=== PATIENT | female | born 1960 | race Caucasian/White ===

== ENCOUNTER 2018-07-13 10:15 | Emergency (ER) | payer OTHER ==
[2018-07-13 12:00] VITALS: BP 113/75
--- NOTE | 2018-07-13 12:04 | UC ---
Skin Complaint HPI - HPI Summary HPI Summary: 57 yo female presents with rash. She tells me that she recently started neosporin for an intestinal issue. About 5 days ago developed a rash on her back and abdomen. She stopped taking the neosporin, but the rash has continued. She has been taking benadryl po with no change in rash. Rash is itchy. No swelling or difficulty breathing. No fever or chills. - History of Current Complaint Chief Complaint: UCSkin Time Seen by Provider: 07/13/18 12:04 Stated Complaint: HIVES Hx Obtained From: Patient Onset/Duration: Sudden Onset Current Severity: None Pain Intensity: 0 - Allergy/Home Medications Allergies/Adverse Reactions: Allergies Allergy/AdvReac Type Severity Reaction Status Date / Time amoxicillin Allergy Rash Verified 01/06/18 15:44 neomycin Allergy Hives Verified 07/13/18 12:01 PMH/Surg Hx/FS Hx/Imm Hx Endocrine History: Hypothyroidism - Surgical History Surgical History: Yes Surgery Procedure, Year, and Place: T & A - Family History Known Family History: Positive: Other - Thyroid problems - Social History Occupation: Employed Full-time Lives: With Family Alcohol Use: Occasionally Substance Use Type: None Smoking Status (MU): Never Smoked Tobacco Review of Systems All Other Systems Reviewed And Are Negative: Yes Constitutional: Positive: Negative Skin: Positive: Rash Eyes: Positive: Negative ENT: Positive: Negative Respiratory: Positive: Negative Cardiovascular: Positive: Negative Gastrointestinal: Positive: Negative Neurovascular: Positive: Negative Neurological: Positive: Negative Psychological: Positive: Negative Physical Exam - Summary Physical Exam Summary: GENERAL: NAD. WDWN. No pain distress. SKIN: Abdomen, back, and chest with diffuse blanchable urticaria and excoriations. NECK: Supple. Nontender. No lymphadenopathy. HEENT: Head: AT/NC Throat: Posterior oropharynx without exudates, erythema, or tonsillar enlargement. Uvula midline. Airway patent. CHEST: CTAB. No accessory muscle use. Breathing comfortably and in no distress. CV: Pulses intact. Cap refill <2seconds NEURO: Alert. PSYCH: Age appropriate behavior. Triage Information Reviewed: Yes Vital Signs: Initial Vital Signs Temp 98.3 F 07/13/18 11:56 Pulse 75 07/13/18 11:56 Resp 12 07/13/18 11:56 BP 113/75 07/13/18 11:56 Pulse Ox 100 07/13/18 11:56 Vital Signs Reviewed: Yes Course/Dx - Course Course Of Treatment: Pt was given kenalog 40mg IM in the clinic and will rx for prednisone. Suspect allergic reaction to the neomycin and advised not to resume this and f/u with her PCP for alternative treatments. - Diagnoses Provider Diagnosis: Allergic reaction caused by a drug Discharge - Sign-Out/Discharge Documenting (check all that apply): Patient Departure All imaging exams completed and their final reports reviewed: No Studies - Discharge Plan Condition: Stable Disposition: HOME Prescriptions: predniSONE TAB* [Deltasone 20 MG TAB*] 20 mg PO DAILY #9 tab Patient Education Materials: Urticaria (ED), General Allergic Reaction (ED) Referrals: Myrna Reynolds MD [Primary Care Provider] - Additional Instructions: If you develop a fever, shortness of breath, chest pain, new or worsening symptoms - please call your PCP or go to the ED. 1) Continue taking the benadryl and using the itch cream 2) Start taking the PREDNISONE tomorrow as you were given a dose of steroid in the clinic today - Billing Disposition and Condition Condition: STABLE Disposition: Home
[2018-07-13] MEDS ORDERED: Triamcinolone Acetonide* 40 MG/ML 1 ML VIAL IM ONE (12:14)
== END 2018-07-13 12:33 | disposition home or self-care (01) ==
LOC: UCEAST 10:15
DX: L27.1 Localized skin eruption due to drugs and medicaments taken internally (principal); T36.5X5A Adverse effect of aminoglycosides, initial encounter; Y92.9 Unspecified place or not applicable; Z88.0 Allergy status to penicillin; E03.9 Hypothyroidism, unspecified
CPT/HCPCS: 96372; 99212; G0463; J3301